=== PATIENT | female | born 1945 | race Caucasian/White ===

== ENCOUNTER → 2019-02-24 | Outpatient (CLI) | payer OTHER ==
[~2019-02-24] MED LIST: ACET500 PO; ALBU90OI6 INH; ALPR1 PO; AMIT25 PO; AMLO5 PO; ANTIDEPRESSANT; ASCO500 PO; ASPI81CH PO; ASPI81EC PO; Aspirin EC81 MG PO; BUDE6HFA INH; CALCAVITDA PO; CALCIT950 PO; CEPH500 PO; CODACE60 PO; CYCL10 PO; DOC250 PO; DOCU100 PO; FLAX PO; FLAXSEED1000 MG PO; Flagyl500 MG PO; GLIM2 PO; Glimepiride1 MG PO; HYDACE5 PO; HYDCHL12.5 PO; HYDCHL25 PO; HYDCHL50 PO; HYDR-86 PO; Hair, Skin & N1 EACH PO; IRON150C PO; Inderal40 MG PO; LEVFLO500 PO; LEVSOD100 PO; LEVSOD150 PO; LISI20 PO; LISI5 PO; METF500 PO; METO50 PO; MILK THISTLE; MULVITMIND PO; MUPI1NAS TOP; Milk Thistle175 M1 PO; Milk Thistle175 MG PO; NAPR500 PO; NITR.3SL SL; Nortriptyline H10 MG PO; PROP60 PO; Pepcid40 MG PO; Percocet 5-3251 EACH PO; Propranolol HCl80 MG PO; Pyridium100 MG PO; QUET25 PO; RXHYDACE PO; SIMV80 PO; Stool Softener100 MG PO; TRAZ100 PO; TRAZ50 PO; TRILIPIX; VITNEPH PO; VITORIN; Vitamin B Comple1 EA PO; ZESTRIL40 MG PO; Zofran Odt4 MG SL
== END | disposition home or self-care (01) ==
LOC: LAB SHORT 07:46 → PLD 07:46
DX: L57.0 Actinic keratosis (principal)
CPT/HCPCS: 88305

== ENCOUNTER 2019-03-26 06:06 | Day surgery (SDC) | payer OTHER ==
[~2019-03-26] VITALS: Ht 160 cm; Wt 75.0 kg
[~2019-03-26 06:06] MED LIST changes: +ALBU90OI INH; +AMLO10 PO; +Calcium 250+D1 EACH PO; +EPIPEN 2-P0.3 MG/0.3 IM; +EZET10 PO; +Flonase 0.05% N16 GM; +Imitrex100 MG PO; +LO-DOSE ASPIRIN81 MG PO; +LOSARTAN POTAS100 MG PO; +MULTI VITAMIN1 EACH PO; +TIROSINT150 MCG PO; +VITAMIN C500 M1 PO
--- NOTE | 2019-03-26 06:59 | NUR ---
03/26/19 0659 Lulu Art PT RESTING COMFORTABLY IN PREOP. CALL [facility] IN REACH.
--- NOTE | 2019-03-26 10:12 | NUR ---
03/26/19 1012 Chata Lowe REPORT TO [facility].DM
== END 2019-03-26 11:07 | disposition home or self-care (01) ==
LOC: ORSCSDS 06:06
PROVIDERS: Otolaryngology
PROC: 0GTK0ZZ Resection of Thyroid Gland, Open Approach (ICD-10-PCS; principal; 2019-03-26 07:30)
PROC: 0GBJ0ZZ Excision of Thyroid Gland Isthmus, Open Approach (ICD-10-PCS; principal; 2019-03-26 07:30)
DX: C73 Malignant neoplasm of thyroid gland (principal); D36.0 Benign neoplasm of lymph nodes; I10 Essential (primary) hypertension; E03.9 Hypothyroidism, unspecified; E11.9 Type 2 diabetes mellitus without complications; Z79.899 Other long term (current) drug therapy
CPT/HCPCS: 82947; 88305; 88307; J1100; J2250; J2270; J2405; J2704; J3010; J7120

== ENCOUNTER → 2019-04-29 | Outpatient (CLI) | payer OTHER ==
[2019-04-29 14:12] LABS: BASOPHILS ABSOLUTE AUTO 0.08 K/mm3 (0.00-0.23); BASOPHILS PERCENT AUTO 1 % (0-2); EOSINOPHILS ABSOLUTE AUTO 0.51 K/mm3 (0.00-0.68); EOSINOPHILS PERCENT AUTO 6 % (0-6); Hematocrit 41.5 % (33.0-51.0); Hemoglobin 13.9 g/dL (11.5-16.0); IMMATURE GRAN ABSOLUTE AUTO 0.05 K/mm3 (0.00-0.10); IMMATURE GRAN PERCENT AUTO 1 % (0-1); LYMPHOCYTES ABSOLUTE AUTO 2.12 K/mm3 (0.84-5.20); LYMPHOCYTES PERCENT AUTO 24 % (21-46); MONOCYTES ABSOLUTE AUTO 0.52 K/mm3 (0.16-1.47); MONOCYTES PERCENT AUTO 6 % (4-13); Mean Corpuscular HGB 29.5 pg (26.0-34.0); Mean Corpuscular HGB Conc 33.5 g/dL (31.5-36.5); Mean Corpuscular Volume 88 fL (80-100); Mean Platelet Volume 9.8 fL (9.1-12.4); NEUTROPHILS ABSOLUTE AUTO 5.52 K/mm3 (1.96-9.15); NEUTROPHILS PERCENT AUTO 63 % (41-73); Platelet Count 334 K/mm3 (150-400); RDW Coefficient Variation 13.5 % (11.7-14.2); RDW Standard Deviation 43.4 fL (35.1-46.3); Red Blood Cell Count 4.71 M/mm3 (3.80-5.20)
== END | disposition home or self-care (01) ==
LOC: LAB SHORT 14:06 → LAB EV 14:06
PROVIDERS: Physician Assistant
DX: E11.9 Type 2 diabetes mellitus without complications (principal)
CPT/HCPCS: 83036; 85025

== ENCOUNTER 2019-06-05 09:29 | Day surgery (SDC) | payer OTHER ==
[~2019-06-05] VITALS: Ht 152.4 cm; Wt 73.5 kg
--- NOTE | 2019-06-05 10:18 | NUR ---
06/05/[address] NOTIFIED PT'S LAST SIP OF WATER WAS AT 0930 THIS MORNING.
== END 2019-06-05 11:46 | disposition home or self-care (01) ==
LOC: ORSCSDS 09:29
PROVIDERS: Surgery
PROC: 0DBE8ZX Excision of Large Intestine, Via Natural or Artificial Opening Endoscopic, Diagnostic (ICD-10-PCS; principal; 2019-06-05 11:00)
DX: R19.7 Diarrhea, unspecified (principal); R10.84 Generalized abdominal pain; R93.5 Abnormal findings on diagnostic imaging of other abdominal regions, including retroperitoneum; Z87.891 Personal history of nicotine dependence; I10 Essential (primary) hypertension; E11.9 Type 2 diabetes mellitus without complications; Z79.899 Other long term (current) drug therapy
CPT/HCPCS: 82947; 88305; J2704; J7030; J7120

== ENCOUNTER 2019-10-16 08:47 | Day surgery (SDC) | payer OTHER ==
[~2019-10-16] VITALS: Ht 160 cm; Wt 78.4 kg
[2019-10-16] MEDS ORDERED: REPATHA SY140 MG/1 M (09:06)
--- NOTE | 2019-10-16 09:21 | NUR ---
10/16/19 0921 Lulu Art TIME OUT AND SITE CHECK DONE AT 0921
--- NOTE | 2019-10-16 10:29 | NUR ---
10/16/19 1029 Keyur Stringer 0.25 MG EPI ADDED TO 50 MLS NACL TO MAKE CONCENTRATION OF 1:200,000. 10 MLS INJECTED.
== END 2019-10-16 12:12 | disposition home or self-care (01) ==
LOC: ORSCSDS 08:47
PROVIDERS: Orthopaedic Surgery
PROC: 0LQ14ZZ Repair Right Shoulder Tendon, Percutaneous Endoscopic Approach (ICD-10-PCS; principal; 2019-10-16 10:00)
PROC: 0RNJ4ZZ Release Right Shoulder Joint, Percutaneous Endoscopic Approach (ICD-10-PCS; principal; 2019-10-16 10:00)
DX: M75.121 Complete rotator cuff tear or rupture of right shoulder, not specified as traumatic (principal); Z87.891 Personal history of nicotine dependence; I10 Essential (primary) hypertension; E11.9 Type 2 diabetes mellitus without complications; G47.33 Obstructive sleep apnea (adult) (pediatric); E07.9 Disorder of thyroid, unspecified; F41.8 Other specified anxiety disorders; Z79.84 Long term (current) use of oral hypoglycemic drugs; Z79.899 Other long term (current) drug therapy
CPT/HCPCS: 82947; C1713; J0171; J0690; J1100; J1885; J2001; J2250; J2370; J2405; J2704; J2795; J3010; J7120

== ENCOUNTER 2020-01-07 10:42 | Day surgery (SDC) | payer OTHER ==
[~2020-01-07] VITALS: Ht 160 cm; Wt 76.4 kg
[~2020-01-07 10:42] MED LIST changes: +ACYC400 PO; +Amaryl1 MG PO; +DICLOFENAC SOD100 G1; +FINA5 PO; +LEVO-T175 MCG PO; +REPATHA SY140 MG/1 M SC
--- NOTE | 2020-01-07 15:19 | NUR ---
01/07/20 1519 SEE ALVAREZ PATIENT UP IN CHAIR, STEADY GATE. TOLERATING PO INTAKE WELL, PO NORCO GIVEN PER MDA ORDER FOR SEVERE PAIN. VSS ON ROOM AIR. SON AT CHAIRSIDE.
== END 2020-01-07 15:44 | disposition home or self-care (01) ==
LOC: ORSCSDS 10:42
PROVIDERS: Otolaryngology
PROC: 0CUT0JZ Supplement Right Vocal Cord with Synthetic Substitute, Open Approach (ICD-10-PCS; principal; 2020-01-07 13:00)
DX: J38.3 Other diseases of vocal cords (principal); C73 Malignant neoplasm of thyroid gland; I10 Essential (primary) hypertension; E11.9 Type 2 diabetes mellitus without complications; Z79.84 Long term (current) use of oral hypoglycemic drugs; Z79.899 Other long term (current) drug therapy
CPT/HCPCS: 82947; A9270-GY; C1713; J1100; J2250; J2704; J3010; J7120

== ENCOUNTER → 2020-11-03 | Outpatient (CLI) | payer OTHER | LOC: LAB 18:02 → LAB SHORT 18:02 | DX: N39.0 Urinary tract infection, site not specified (principal) | CPT/HCPCS: 87077; 87086; 87186 ==

== ENCOUNTER 2021-05-25 14:50 | Inpatient (IN) | payer OTHER, MEDICARE ==
[~2021-05-25] VITALS: Ht 160 cm; Wt 72.6 kg
[2021-05-25 15:05] LABS: Calcium, Ionized (POC) 1.21 mmol/L (1.10-1.46); Chloride (POC) 110 mmol/L (98-108); Creatinine (POC) 1.5 mg/dL (0.6-1.0); Glucose (ISTAT POC) 144 mg/dL (70-99); Hemoglobin (POC) 12.9 g/dL (12.0-16.0); Potassium (POC) 4.8 mmol/L (3.5-5.5); Sodium (POC) 141 mmol/L (135-148); Total CO2 (POC) 17 mmol/L (21-32)
[2021-05-25 15:11] LABS: Hematocrit 37.8 % (33.0-51.0); Hemoglobin 12.6 g/dL (11.5-16.0); Mean Corpuscular HGB 30.4 pg (26.0-34.0); Mean Corpuscular HGB Conc 33.3 g/dL (31.5-36.5); Mean Corpuscular Volume 91 fL (80-100); Mean Platelet Volume 9.5 fL (9.1-12.4); Platelet Count 299 K/mm3 (150-400); RDW Coefficient Variation 13.2 % (11.7-14.2); RDW Standard Deviation 43.3 fL (35.1-46.3); Red Blood Cell Count 4.15 M/mm3 (3.80-5.20); White Blood Cell Count 12.54 K/mm3 (4.00-11.30)
[2021-05-25] MEDS ORDERED: SPIRONOLACTONE50 MG PO (15:15)
[2021-05-25] MEDS ORDERED: SYNTHROID137 MCG PO (15:16)
[2021-05-25] MEDS ORDERED: METO50ER PO (15:16)
[2021-05-25] MEDS ORDERED: LOSA50 PO (15:17)
[2021-05-25] MEDS ORDERED: REPATHA SU140 MG/1 M (15:17)
[2021-05-25] MEDS ORDERED: EZETIMIBE10 M6 PO (15:17)
[2021-05-25] MEDS ORDERED: NEURONTIN300 MG PO ×2 (15:18)
[2021-05-25] MEDS ORDERED: FINA5 PO (15:18)
[2021-05-25] MEDS ORDERED: Amaryl1 MG PO (15:19)
[2021-05-25] MEDS ORDERED: ACYCLOVIR400 MG PO (15:19)
[2021-05-25 15:27] LABS: International Normalized Ratio 0.97; Prothrombin Time Results 10.5 Sec (9.7-11.5)
[2021-05-25 15:37] LABS: Anion Gap 8 mmol/L (6-16); Blood Urea Nitrogen 32 mg/dL (8-24); Bun/Creatinine Ratio 24.6 (12.0-20.0); CHOL/HDL RATIO 2.3; CO2, Blood 22 mmol/L (21-32); CPK Creatine Kinase 272 U/L (26-193); Calcium, Blood 9.7 mg/dL (8.5-10.1); Chloride, Blood 110 mmol/L (98-108); Cholesterol 126 mg/dL (50-200); Glomerular Filtration Rate 40 (60-); Glucose, Blood 147 mg/dL (70-99); HDL Cholesterol 55 mg/dL (>39); LDL/HDL RATIO 0.5; Low Density Lipoprotein Chol 26 mg/dL (0-110); Magnesium, Blood 1.4 mg/dL (1.6-2.4); Potassium, Blood 4.8 mmol/L (3.5-5.5); Sodium, Blood 140 mmol/L (136-145); Triglycerides 227 mg/dL (30-160); Very Low Density Lipoprot Chol 45 mg/dL (6-32)
[2021-05-25 15:47] LABS: Creatine Kinase MB 19.1 ng/mL (0.0-3.6)
--- NOTE | 2021-05-25 17:30 | NUR ---
Patient arrived via gurney with TR band on right wrist and has 13cc in band. She is alet and oriented and is able to communicate her needs. She is on RA and sats >90%. Her TR band site C/D/I and no signs of bruising or hematoma. Received report from from staff. Family allowed shortly after. IV to LAC and is finishing bag from HC then 100 ml/hr.
[2021-05-25 18:15] LABS: BASOPHILS ABSOLUTE AUTO 0.04 K/mm3 (0.00-0.23); BASOPHILS PERCENT AUTO 0 % (0-2); EOSINOPHILS ABSOLUTE AUTO 0.23 K/mm3 (0.00-0.68); EOSINOPHILS PERCENT AUTO 2 % (0-6); Hematocrit 32.4 % (33.0-51.0); Hemoglobin 10.5 g/dL (11.5-16.0); IMMATURE GRAN ABSOLUTE AUTO 0.08 K/mm3 (0.00-0.10); IMMATURE GRAN PERCENT AUTO 1 % (0-1); LYMPHOCYTES ABSOLUTE AUTO 1.78 K/mm3 (0.84-5.20); LYMPHOCYTES PERCENT AUTO 15 % (21-46); MONOCYTES ABSOLUTE AUTO 0.65 K/mm3 (0.16-1.47); MONOCYTES PERCENT AUTO 5 % (4-13); Mean Corpuscular HGB 30.3 pg (26.0-34.0); Mean Corpuscular HGB Conc 32.4 g/dL (31.5-36.5); Mean Corpuscular Volume 94 fL (80-100); Mean Platelet Volume 9.6 fL (9.1-12.4); NEUTROPHILS ABSOLUTE AUTO 9.45 K/mm3 (1.96-9.15); NEUTROPHILS PERCENT AUTO 77 % (41-73); Platelet Count 230 K/mm3 (150-400); RDW Coefficient Variation 13.1 % (11.7-14.2); RDW Standard Deviation 44.6 fL (35.1-46.3); Red Blood Cell Count 3.46 M/mm3 (3.80-5.20); White Blood Cell Count 12.23 K/mm3 (4.00-11.30)
--- NOTE | 2021-05-25 19:03 | NUR ---
Dr Avelar by and spoke with family, EKG done. Cardiac diet started and she is tolerating well. Meds reveiwed and entered. Gave report to Gladys GORMAN
[2021-05-25 20:47] LABS: Bun/Creatinine Ratio 25.5 (12.0-20.0); Calcium, Blood 8.3 mg/dL (8.5-10.1); Creatinine, Blood 1.1 mg/dL (0.40-1.00)
--- NOTE | 2021-05-26 00:29 | NUR ---
PATIENT IS ALERT AND ORIENTED X4, COOPERATIVE WITH CARE. PATIENT STATED SHE WANTED HER CODE STATUS TO BE A DNR, CALLED DR. YAP AND CHANGED CODE STATUS TO DNR. PATIENT COMPLAINING OF 6/10 CHEST PAIN, FENTANYL GIVEN TWICE WITH NO TO LITTLE RELIEF, CALLED DR. YAP AND PT STARTED ON NITRO gtt, TROPONIN DRAWN WHICH IS TRENDING DOWN DR NOTIFIED. O2 SATS MAINTAINING >95% BUT PT COMPLAINS OF SOB, 2L VIA NC AND PT STATES SHE FEELS FINE NOW. PATIENT SBA TO BEDSIDE COMMODE. DR. YAP CALLED AND STARTED PT ON COLCHACINE, SEE EMAR. CALL LIGHT IN REACH.
--- NOTE | 2021-05-26 05:45 | NUR ---
SHIFT SUMMARY PATIENT REMAINS ALERT AND ORIENTED, COOPERATIVE WITH CARE. CHEST PAIN HAS NOW RESOLVED, PT ON NITRO gtt, SEE EMAR. PT ABLE TO SLEEP. TR BAND REMOVED @0245, TEGADERM IN PLACE, SCANT AMOUNT OF BLEEDING AND SMALL HEMATOMA UNCHANGED FROM BEGINNING OF SHIFT. EKG DONE AND IN CHART. PT REMAINS ON 2L VIA NC FOR COMFORT. CALL LIGHT IN REACH.
--- NOTE | 2021-05-26 09:19 | NUR ---
PT RESTING IN BED. DENIES CP, NV, AND SOB THIS AM. NITRO GTT HAS BEEN OFF AND NO COMPLAINTS. R RADIAL ACCESS SITE IS C/D/I AND STABLE WITH ARMBOARD IN PLACE. NO SIGN OF DISTRESS. ECHO BEING DONE NOW.
[2021-05-26 14:39] LABS: BASOPHILS ABSOLUTE AUTO 0.04 K/mm3 (0.00-0.23); BASOPHILS PERCENT AUTO 1 % (0-2); EOSINOPHILS ABSOLUTE AUTO 0.25 K/mm3 (0.00-0.68); EOSINOPHILS PERCENT AUTO 3 % (0-6); Hematocrit 33.5 % (33.0-51.0); Hemoglobin 11.1 g/dL (11.5-16.0); IMMATURE GRAN ABSOLUTE AUTO 0.04 K/mm3 (0.00-0.10); IMMATURE GRAN PERCENT AUTO 1 % (0-1); LYMPHOCYTES ABSOLUTE AUTO 1.45 K/mm3 (0.84-5.20); LYMPHOCYTES PERCENT AUTO 19 % (21-46); MONOCYTES PERCENT AUTO 8 % (4-13); Mean Corpuscular HGB Conc 33.1 g/dL (31.5-36.5); Mean Corpuscular Volume 91 fL (80-100); Mean Platelet Volume 9.6 fL (9.1-12.4); NEUTROPHILS ABSOLUTE AUTO 5.26 K/mm3 (1.96-9.15); NEUTROPHILS PERCENT AUTO 69 % (41-73); Platelet Count 246 K/mm3 (150-400); RDW Coefficient Variation 13.2 % (11.7-14.2); RDW Standard Deviation 43.3 fL (35.1-46.3); White Blood Cell Count 7.64 K/mm3 (4.00-11.30)
[2021-05-26 15:20] LABS: Anion Gap 5 mmol/L (6-16); Blood Urea Nitrogen 21 mg/dL (8-24); CO2, Blood 22 mmol/L (21-32); Calcium, Blood 9.3 mg/dL (8.5-10.1); Chloride, Blood 110 mmol/L (98-108); Creatinine, Blood 0.84 mg/dL (0.40-1.00); Glomerular Filtration Rate >60 (60-); Glucose, Blood 114 mg/dL (70-99); Potassium, Blood 4.7 mmol/L (3.5-5.5); Sodium, Blood 137 mmol/L (136-145)
--- NOTE | 2021-05-26 18:48 | NUR ---
SUMMARY PT RESTING IN BED. DENIES CP ALL DAY. HAS BEEN OFF NITRO SINCE 0820. OFF OXYGEN THIS AFTERNOON. R RADIAL SITE IS STABLE. PT HAS BEEN AMBULATING IN ROOM WITHOUT ISSUE. NO ACUTE CHANGES.
--- NOTE | 2021-05-26 21:05 | NUR ---
SHIFT ASSESSMENT ASSUMED CARE OF PT @ 1900, REPORT RECEIVED FROM VITA BLAIR. PT A&OX4. RADIAL ACCESS SITE WITH NO SIGNS OF BLEEDING. PT DENIES CP. SITTING UPRIGHT IN BED. NO COMPLAINTS AT THIS TIME. VSS. TRANSFERRING TO COMMODE WITH ONE PERSON ASSISTANCE.
--- NOTE | 2021-05-27 02:09 | NUR ---
UPDATE PT CONTINUES TO DENY CP. INTERMITTENTLY C/O SOB c O2 SATS @ 98-99% ON RA. PT ADMITS TO OCCASIONAL ANXIETY, PLACED ON 1LPM O2 VIA NC FOR ABOUT AN HOUR, SEEMED TO HELP PT RELAX. ALSO RECEIVED ORDERS FOR PRN ATIVAN, HAVE NOT NEEDED TO ADMINSTER YET. PT CURRENTLY RESTING WELL c O2 ON SB.
[2021-05-27 03:44] LABS: CHOL/HDL RATIO 2.5; Cholesterol 130 mg/dL (50-200); HDL Cholesterol 51 mg/dL (>39); LDL/HDL RATIO 0.8; Low Density Lipoprotein Chol 43 mg/dL (0-110); Triglycerides 181 mg/dL (30-160); Very Low Density Lipoprot Chol 36 mg/dL (6-32)
--- NOTE | 2021-05-27 06:03 | NUR ---
SHIFT SUMMARY PT REMAINS A&OX4. DENIED CP T/O THE NIGHT. ABLE TO SLEEP FOR MOST OF THE NIGHT. DID NOT REQUIRE ATIVAN. NO SIGNIFICANT CHANGES IN PT CONDITION.
--- NOTE | 2021-05-27 08:01 | NUR ---
pt up ad jennifer in room indep, gait is steady, denies dizziness, she reports she was sob durring the night, and was told its probably a new medication, breathing is fine now, but having some occational twinges in her left chest, v.s. stable, afebrile, states she slept like a rock last night, lungs are clear t/o, resp even and unlabored, no cough noted, hrr, monitor in place see strip, does have some st elevation that has been there, no edema noted, ppp+1, cap refill <3sec, vs stable, afebrile, iv sites are clear to r and l ac's, s.l, sites are clear and patent, btx4, abd flat soft nontender, voids without diff, skin is c/w/d, tr band site is clear with occlusive dressing in place, sravani peter, call light in reach.
--- NOTE | 2021-05-27 11:31 | NUR ---
Echocardiogram completed.
--- NOTE | 2021-05-27 14:29 | NUR ---
Notified Dr. Ramirez of results of trops that were ordered.
--- NOTE | 2021-05-27 17:53 | NUR ---
pt daughter was in to see pt, asking detailed questions, asked Dr. Willams to speak to her, she was able to speak to her on the phone and answered all her questions, pt has been up to the chair the second half of the day, and is up ad jennifer in the room, gait is steady, no further needs or complaints. call light in reach.
[2021-05-27 18:19] LABS: BASOPHILS ABSOLUTE AUTO 0.07 K/mm3 (0.00-0.23); BASOPHILS PERCENT AUTO 1 % (0-2); EOSINOPHILS ABSOLUTE AUTO 0.39 K/mm3 (0.00-0.68); EOSINOPHILS PERCENT AUTO 5 % (0-6); Hematocrit 39.2 % (33.0-51.0); Hemoglobin 12.8 g/dL (11.5-16.0); IMMATURE GRAN ABSOLUTE AUTO 0.05 K/mm3 (0.00-0.10); IMMATURE GRAN PERCENT AUTO 1 % (0-1); LYMPHOCYTES PERCENT AUTO 22 % (21-46); MONOCYTES ABSOLUTE AUTO 0.84 K/mm3 (0.16-1.47); MONOCYTES PERCENT AUTO 10 % (4-13); Mean Corpuscular HGB 30.2 pg (26.0-34.0); Mean Corpuscular HGB Conc 32.7 g/dL (31.5-36.5); Mean Corpuscular Volume 93 fL (80-100); Mean Platelet Volume 9.7 fL (9.1-12.4); NEUTROPHILS ABSOLUTE AUTO 4.97 K/mm3 (1.96-9.15); NEUTROPHILS PERCENT AUTO 61 % (41-73); Platelet Count 296 K/mm3 (150-400); RDW Coefficient Variation 13.3 % (11.7-14.2); RDW Standard Deviation 44.5 fL (35.1-46.3); Red Blood Cell Count 4.24 M/mm3 (3.80-5.20); White Blood Cell Count 8.12 K/mm3 (4.00-11.30)
[2021-05-27 19:01] LABS: Bun/Creatinine Ratio 30.6 (12.0-20.0); Calcium, Blood 9.4 mg/dL (8.5-10.1); Creatinine, Blood 0.92 mg/dL (0.40-1.00)
--- NOTE | 2021-05-27 21:55 | NUR ---
ASSUMED CARE OF PATIENT AT APPROXIMATELY 1900 FROM MONTSERRAT Nichole RN. PATIENT ALERT AND ORIENTED X4; FORGETFUL AT TIMES; INDEPENDENT IN ROOM OUT OF BED AND TO BATHROOM. PATIENT DENIES CP/PRESSURE, PAIN ELSEWHERE, NUMBNESS, TINGLING, DIZZINESS AND NAUSEA. PATIENT SR W/ ST ELEVATION SINCE ADMISSION TO ICU ON TELE. S/P ANGIO W/ TEGADERM TO RIGHT WRIST; SMALL BRUISE NOTED; NO BLEEDING OR HEMATOMA NOTED; OXYGEN SATURATION ABOVE 90% ON ROOM AIR; REPORTS LAST NIGHT SHE NEEDED SOME OXYGEN TO SLEEP DUE TO HER NEW MEDICATION. PIV X2 S/L. GAVE SUPPLIES AND PATIENT GAVE SELF A PARTIAL BEDBATH.
--- NOTE | 2021-05-28 06:09 | NUR ---
PATIENT SLEPT FOR ABOUT EIGHT HOURS LAST NIGHT. VSS. DENIED CP ALL SHIFT. NO ACUTE CHANGES TO REPORT.
[2021-05-28] MEDS ORDERED: SPIR25 PO (11:28)
[2021-05-28] MEDS ORDERED: Acetaminophen325 M1 PO (11:28)
[2021-05-28] MEDS ORDERED: ASPI81CH PO (11:29)
[2021-05-28] MEDS ORDERED: NITROGLYCERIN0.4 M1 SL (11:30)
[2021-05-28] MEDS ORDERED: COLCHICINE0.6 MG PO (11:30)
[2021-05-28] MEDS ORDERED: PRASUGREL HCL PO (11:31)
--- NOTE | 2021-05-28 13:05 | NUR ---
PT DISCHARGED TO HOME TODAY WITH DISCHARGED ORDERS, PT TO FF UP WITH DR DOVE IN A WEEK AND CARDIOLOGISTS INFORMATION PROVIDED FOR PT TO MAKE APPT SCHEDULED. PRESCRIPTION FAXED TO [facility], PT PROVIDED WITH DISCHARGED INSTRUCTIONS AND COUPON FOR NEW MEDICINE, PT INSTRUCTED TO TAKE 6 TABS IN AM THEN [address] LORENZO. NO OTHER ISSUES OR COMPLAINT REPORTED PRIOR TO DISCHARGE. DENIES CHEST PAIN. VERBALIZED UNDERSTANDING OF THE INSTRUCTION PROVIDED. DAUGHTER PROVIDED TRANSPORTATION.
== END 2021-05-28 13:08 | disposition home or self-care (01) | DRG 247 ==
LOC: ER 14:50 → ICUW 15:03 → ICUE 17:26
PROVIDERS: Emergency Medicine; Internal Medicine Cardiovascular Disease; ADMIT Internal Medicine Cardiovascular Disease
PROC: 027034Z Dilation of Coronary Artery, One Artery with Drug-eluting Intraluminal Device, Percutaneous Approach (ICD-10-PCS; principal; 2021-05-25)
PROC: 4A023N7 Measurement of Cardiac Sampling and Pressure, Left Heart, Percutaneous Approach (ICD-10-PCS; 2021-05-25)
PROC: B2111ZZ Fluoroscopy of Multiple Coronary Arteries using Low Osmolar Contrast (ICD-10-PCS; 2021-05-25)
DX: I21.09 ST elevation (STEMI) myocardial infarction involving other coronary artery of anterior wall (principal); I51.81 Takotsubo syndrome; I31.9 Disease of pericardium, unspecified; Z88.2 Allergy status to sulfonamides; I25.10 Atherosclerotic heart disease of native coronary artery without angina pectoris; I08.0 Rheumatic disorders of both mitral and aortic valves; E78.5 Hyperlipidemia, unspecified; E11.9 Type 2 diabetes mellitus without complications; I10 Essential (primary) hypertension; Z86.73 Personal history of transient ischemic attack (TIA), and cerebral infarction without residual deficits; Z88.8 Allergy status to other drugs, medicaments and biological substances; Z79.899 Other long term (current) drug therapy; Z90.710 Acquired absence of both cervix and uterus; Z98.890 Other specified postprocedural states
CPT/HCPCS: 36415; 71045; 76937; 80047; 80048; 80061; 82550; 82553; 82947; 83735; 83880; 84484; 85014; 85025; 85027; 85347; 85610; 85730; 86850; 86900; 86901; 92978; 93005; 93010; 93306; 93308; 93321; 93458; 93571; 99152; 99153; 99285-25; A9270; C1725; C1753; C1769; C1874; C1887; C1894; C9606; J0461; J1644; J2250; J2370; J3010; J7030; J7050; Q9967

== ENCOUNTER 2021-09-11 17:24 | Emergency (ER) | payer OTHER ==
[~2021-09-11] VITALS: Ht 160 cm; Wt 72.6 kg
[~2021-09-11 17:24] MED LIST changes: +ACYCLOVIR400 MG PO; +Acetaminophen325 M1 PO; +COLCHICINE0.6 MG PO; +EZETIMIBE10 M6 PO; +LOSA50 PO; +METO50ER PO; +NEURONTIN300 MG PO; +NITROGLYCERIN0.4 M1 SL; +PRASUGREL HCL PO; +REPATHA SU140 MG/1 M; +SPIR25 PO; +SPIRONOLACTONE50 MG PO; +SYNTHROID137 MCG PO
== END 2021-09-11 19:42 | disposition home or self-care (01) ==
LOC: ER 17:24
DX: S60.212A Contusion of left wrist, initial encounter (principal); I10 Essential (primary) hypertension; E11.9 Type 2 diabetes mellitus without complications; E78.5 Hyperlipidemia, unspecified; Z88.2 Allergy status to sulfonamides; Z88.8 Allergy status to other drugs, medicaments and biological substances; Z91.048 Other nonmedicinal substance allergy status; Z79.899 Other long term (current) drug therapy; Z79.84 Long term (current) use of oral hypoglycemic drugs; X58.XXXA Exposure to other specified factors, initial encounter
CPT/HCPCS: 73100; 99283-25

== ENCOUNTER → 2022-01-24 | Outpatient (CLI) | payer OTHER | LOC: LAB SHORT 16:12 → LAB 16:12 | DX: N39.0 Urinary tract infection, site not specified (principal) | CPT/HCPCS: 87077; 87086; 87186 ==

== ENCOUNTER 2022-02-20 18:14 | Emergency (ER) | payer OTHER ==
[~2022-02-20] VITALS: Ht 177.8 cm; Wt 77.1 kg
[2022-02-20 18:37] LABS: BASOPHILS ABSOLUTE AUTO 0.03 K/mm3 (0.00-0.23); BASOPHILS PERCENT AUTO 1 % (0-2); EOSINOPHILS ABSOLUTE AUTO 0.36 K/mm3 (0.00-0.68); EOSINOPHILS PERCENT AUTO 6 % (0-6); Hematocrit 37.7 % (33.0-51.0); Hemoglobin 12.6 g/dL (11.5-16.0); IMMATURE GRAN ABSOLUTE AUTO 0.02 K/mm3 (0.00-0.10); IMMATURE GRAN PERCENT AUTO 0 % (0-1); LYMPHOCYTES ABSOLUTE AUTO 1.75 K/mm3 (0.84-5.20); LYMPHOCYTES PERCENT AUTO 28 % (21-46); MONOCYTES ABSOLUTE AUTO 0.44 K/mm3 (0.16-1.47); MONOCYTES PERCENT AUTO 7 % (4-13); Mean Corpuscular HGB 30.7 pg (26.0-34.0); Mean Corpuscular HGB Conc 33.4 g/dL (31.5-36.5); Mean Corpuscular Volume 92 fL (80-100); Mean Platelet Volume 9.6 fL (9.1-12.4); NEUTROPHILS ABSOLUTE AUTO 3.72 K/mm3 (1.96-9.15); NEUTROPHILS PERCENT AUTO 59 % (41-73); Platelet Count 236 K/mm3 (150-400); RDW Coefficient Variation 13.4 % (11.7-14.2); RDW Standard Deviation 45.3 fL (35.1-46.3); White Blood Cell Count 6.32 K/mm3 (4.00-11.30)
[2022-02-20 18:46] LABS: Source, Urine Fem Cath
[2022-02-20 18:50] LABS: Appearance, Urine Hazy (Clear); Bilirubin, Urine Neg (Neg); Blood, Urine Neg (Neg); Color, Urine Yellow (P-Yellow); Glucose Qualitative, Urine Neg (Neg); Ketones, Urine Neg (Neg); Leukocyte Esterase, Urine 2+ (Neg); Nitrite, Urine Neg (Neg); Protein, Urine 2+ (Neg); Specific Gravity, Urine 1.025 (1.003-1.022); Urobilinogen, Urine NORM (Normal)
[2022-02-20 18:55] LABS: Albumin, Blood 3.7 g/dL (3.4-5.0); Albumin/Globulin Ratio 1.1 (0.8-1.8); Bilirubin, Total 0.2 mg/dL (0.1-1.0); Bun/Creatinine Ratio 24.7 (12.0-20.0); Calcium, Blood 8.6 mg/dL (8.5-10.1); Creatinine, Blood 0.93 mg/dL (0.40-1.00); Globulin, Blood 3.5 g/dL (2.2-4.0); Potassium, Blood 4.1 mmol/L (3.5-5.5); Total Protein, Blood 7.2 g/dL (6.4-8.2)
[2022-02-20 19:14] LABS: Bacteria Many /hpf; Red Blood Cells, Urine Rare /hpf (0-2); Squamous Epithelial Cells Few /hpf (Few); White Blood Cells, Urine 25-50 /hpf (0-5)
[2022-02-20] MEDS ORDERED: CEPH500 PO (19:59)
== END 2022-02-20 20:07 | disposition home or self-care (01) ==
LOC: ER 18:14
PROVIDERS: Physician Assistant
DX: N39.0 Urinary tract infection, site not specified (principal); I10 Essential (primary) hypertension; E11.9 Type 2 diabetes mellitus without complications; Z79.84 Long term (current) use of oral hypoglycemic drugs; Z88.2 Allergy status to sulfonamides; Z88.8 Allergy status to other drugs, medicaments and biological substances; Z91.018 Allergy to other foods; Z87.891 Personal history of nicotine dependence
CPT/HCPCS: 36415; 80053; 81001; 83690; 85025; J0696

== ENCOUNTER → 2022-03-21 | Outpatient (CLI) | payer OTHER ==
[2022-03-23 21:02] LABS: Campylobacter Sp Not Detected (NOT DETECT); Enteroaggregative E. coli-EAEC Not Detected (NOT DETECT); Enteropathogenic E. coli-EPEC Not Detected (NOT DETECT); Enterotoxigenic E. coli-ETEC Not Detected (NOT DETECT); Plesiomonas Shigelloides Not Detected (NOT DETECT); Salmonella Sp Not Detected (NOT DETECT); Shiga Toxin-prod E. coli-STEC Not Detected (NOT DETECT); Vibrio Cholerae Not Detected (NOT DETECT); Vibrio Sp Not Detected (NOT DETECT); Yersinia Enterocolitica Not Detected (NOT DETECT)
[2022-03-23 21:03] LABS: Adenovirus F 40/41 Not Detected (NOT DETECT); Astrovirus Not Detected (NOT DETECT); Cryptosporidium Not Detected (NOT DETECT); Cyclospora Cayetanensis Not Detected (NOT DETECT); E. Coli O157 Not Detected (NOT DETECT); Entamoeba Histolytica Not Detected (NOT DETECT); Giardia Lamblia Not Detected (NOT DETECT); Norovirus GI/GII Not Detected (NOT DETECT); Rotavirus A Not Detected (NOT DETECT); Sapovirus Not Detected (NOT DETECT); Shigella/Enteroin E. coli-EIEC Not Detected (NOT DETECT)
== END | disposition home or self-care (01) ==
LOC: LAB SHORT 16:06
PROVIDERS: Physician Assistant Medical
DX: R19.7 Diarrhea, unspecified (principal)
CPT/HCPCS: 87507

== ENCOUNTER 2022-06-12 06:41 | Day surgery (SDC) | payer OTHER ==
[~2022-06-12] VITALS: Ht 160 cm; Wt 73.6 kg
[2022-06-12] MEDS ORDERED: DRIZALMA SPRINK20 MG (07:02)
[2022-06-12] MEDS ORDERED: EZET10 (07:03)
--- NOTE | 2022-06-12 07:39 | NUR ---
06/12/22 0739 Nazanin Villalba THREE ATTEMPTS AT IV. FIRST ATTEMPT AT IV BY MA IN RIGHT HAND MISSED. SECOND ATTEMPT AT IV BY MA IN RIGHT FOREARM INFILTRATED. THIRD ATTEMPT AT IV BY RN IN LEFT HAND SUCCESSFUL.
--- NOTE | 2022-06-12 09:52 | NUR ---
06/12/22 0952 Sangeeta Boone RN ENCOURAGED PT TO TAKE HER BLOOD PRESSURE MEDICATIONS PRESCRIBED. SHE STATED "I AM SUPPOSED TO TAKE MY BP MEDICINE TWICE A DAY BUT USUALLY ONLY TAKE IT AT NIGHT." RN ENCOURAGED PT TO MONITOR BP AT HOME AND TAKE MEDICATIONS PRESCRIBED.
== END 2022-06-12 09:45 | disposition home or self-care (01) ==
LOC: ORSCSDS 06:41
PROVIDERS: Student in an Organized Health Care Education/Training Program
PROC: 0DBK8ZX Excision of Ascending Colon, Via Natural or Artificial Opening Endoscopic, Diagnostic (ICD-10-PCS; principal; 2022-06-12 08:00)
PROC: 0DBE8ZX Excision of Large Intestine, Via Natural or Artificial Opening Endoscopic, Diagnostic (ICD-10-PCS; principal; 2022-06-12 08:00)
PROC: 0DBL8ZX Excision of Transverse Colon, Via Natural or Artificial Opening Endoscopic, Diagnostic (ICD-10-PCS; principal; 2022-06-12 08:00)
DX: R19.7 Diarrhea, unspecified (principal); K62.5 Hemorrhage of anus and rectum; D12.2 Benign neoplasm of ascending colon; D12.3 Benign neoplasm of transverse colon; D50.9 Iron deficiency anemia, unspecified; Z86.010 Personal history of colon polyps; K29.70 Gastritis, unspecified, without bleeding; B96.81 Helicobacter pylori [H. pylori] as the cause of diseases classified elsewhere; E11.9 Type 2 diabetes mellitus without complications; I10 Essential (primary) hypertension; E03.9 Hypothyroidism, unspecified; E78.5 Hyperlipidemia, unspecified; I25.2 Old myocardial infarction; I25.10 Atherosclerotic heart disease of native coronary artery without angina pectoris; Z85.850 Personal history of malignant neoplasm of thyroid; Z85.72 Personal history of non-Hodgkin lymphomas; Z87.891 Personal history of nicotine dependence; Z79.899 Other long term (current) drug therapy; Z79.82 Long term (current) use of aspirin; Z79.84 Long term (current) use of oral hypoglycemic drugs
CPT/HCPCS: 82947; 88305; 88313; 88342; J2704; J7120

== ENCOUNTER → 2022-06-22 | Outpatient (CLI) | payer OTHER ==
[~2022-06-22] MED LIST changes: +DRIZALMA SPRINK20 MG; +EZET10
== END | disposition home or self-care (01) ==
LOC: LAB 13:30 → LAB SHORT 13:30
DX: M54.50 Low back pain, unspecified (principal); N39.0 Urinary tract infection, site not specified
CPT/HCPCS: 87086

== ENCOUNTER 2022-11-26 17:04 | Inpatient (IN) | payer OTHER ==
[~2022-11-26] VITALS: Ht 160 cm; Wt 72.6 kg
[2022-11-26 18:03] LABS: BASOPHILS ABSOLUTE AUTO 0.06 K/mm3 (0.00-0.23); BASOPHILS PERCENT AUTO 1 % (0-2); EOSINOPHILS ABSOLUTE AUTO 0.34 K/mm3 (0.00-0.68); EOSINOPHILS PERCENT AUTO 4 % (0-6); Hematocrit 40.5 % (33.0-51.0); Hemoglobin 13.3 g/dL (11.5-16.0); IMMATURE GRAN ABSOLUTE AUTO 0.04 K/mm3 (0.00-0.10); IMMATURE GRAN PERCENT AUTO 0 % (0-1); LYMPHOCYTES ABSOLUTE AUTO 1.85 K/mm3 (0.84-5.20); LYMPHOCYTES PERCENT AUTO 20 % (21-46); MONOCYTES ABSOLUTE AUTO 0.67 K/mm3 (0.16-1.47); MONOCYTES PERCENT AUTO 7 % (4-13); Mean Corpuscular HGB 30.5 pg (26.0-34.0); Mean Corpuscular HGB Conc 32.8 g/dL (31.5-36.5); Mean Corpuscular Volume 93 fL (80-100); Mean Platelet Volume 9.5 fL (9.1-12.4); NEUTROPHILS ABSOLUTE AUTO 6.18 K/mm3 (1.96-9.15); NEUTROPHILS PERCENT AUTO 68 % (41-73); Platelet Count 264 K/mm3 (150-400); RDW Standard Deviation 44.1 fL (35.1-46.3); Red Blood Cell Count 4.36 M/mm3 (3.80-5.20); White Blood Cell Count 9.14 K/mm3 (4.00-11.30)
[2022-11-26 18:24] LABS: Albumin, Blood 4.3 g/dL (3.4-5.0); Albumin/Globulin Ratio 1.2 (0.8-1.8); Bilirubin, Total 0.3 mg/dL (0.1-1.0); Bun/Creatinine Ratio 15.7 (12.0-20.0); Calcium, Blood 9.1 mg/dL (8.5-10.1); Creatinine, Blood 3.19 mg/dL (0.40-1.00); Globulin, Blood 3.7 g/dL (2.2-4.0); Potassium, Blood 5.2 mmol/L (3.5-5.5)
[2022-11-26] MEDS ORDERED: MINO2.5 PO (20:54)
[2022-11-26] MEDS ORDERED: REPATHA SU140 MG/1 M SC (20:58)
[2022-11-26] MEDS ORDERED: SUMA25 PO (21:00)
[2022-11-26] MEDS ORDERED: FINA5 PO (21:03)
[2022-11-26] MEDS ORDERED: DULO60 PO (21:08)
[2022-11-26 21:14] LABS: Influenza A, PCR NEGATIVE (NEGATIVE); Influenza B, PCR NEGATIVE (NEGATIVE); Resp Syncytial Virus, PCR NEGATIVE (NEGATIVE); SARS-Cov-2 (COVID-19) PCR, MMC NEGATIVE (NEGATIVE)
--- NOTE | 2022-11-26 22:10 | NUR ---
ORTHOS COMPLETED LYING BP 132/67 HR 113. SITTING BP 105/70 HR 117. STANDING BP 119/95 HR 122
--- NOTE | 2022-11-27 04:30 | NUR ---
SHIFT SUMMARY PT ARRIVED TO FLOOR. ADMISSION AND ASSESSMENT COMPLETE. SKIN ASSESSMENT DONE, SKIN INTACT. PT REPORTS MILD DIZZINESS WITH POSITION CHANGES. DIZZINESS RESOLVES AFTER A FEW SECONDS. DENIES ANY SOB/CP. CONTINUES IV FLUIDS. PT USED BSC WITH X1 ASSIST FOR SAFETY. REPORTS GENERAL PAIN FROM RECENT FALLS, ADMINISTERED TYLENOL. PT ORIENTED X4, SLIGHTLY FORGETFUL, BED ALARM ON. FREQUENT ROUNDING TO ASSIST IN NEEDS.
[2022-11-27 04:40] LABS: Bun/Creatinine Ratio 22.6 (12.0-20.0); Calcium, Blood 7.9 mg/dL (8.5-10.1); Creatinine, Blood 1.9 mg/dL (0.40-1.00); Potassium, Blood 4.7 mmol/L (3.5-5.5)
--- NOTE | 2022-11-27 17:20 | NUR ---
SHIFT SUMMARY NO ACUTE CHANGES DURING SHIFT. PT ALERT AND ORIENTED, CALLS APPROPRIATELY. INDWELLING SOLIS CATHETER PLACED D/T RETENTION. SOLIS DRAINING TO GRAVITY. PT REMAINS ON RA. PT SBA TO BATHROOM. NS @ 150 ML/HR. PT C/O WILDER NOT RELEAVED BY TYLENOL, PT STARTED ON HOME MEDICATION, WILL MONITOR FOR EFFECTIVENESS. CALL LIGHT WITHIN REACH.
--- NOTE | 2022-11-28 03:50 | NUR ---
SHIFT SUMMARY NOC PT A/O X4. PT HAD ELEVATED SYSTOLIC BP > 170 MULTIPLE TIMES AND HOSPITALIST NOTIFIED AND ORDER FOR IV HYDRALZINE 10MG Q6H PRN OBTAINED AND ADMINISTERED AND PT BP WAS LOWERED TO WNL. PT NS @ 150 MLS/HR WAS DC. PT ON TELE RUNNNING SINUTS TACHYCARDIA @ 106 BPM[address] PT [address] IN [address] PATENT AND DRAINING YELLOW URINE TO GRAVITY. PT DID NOT HAVE C/O OF WILDER DURING SHIFT. PT IS CURRENTLY RESTING WITH BED IN LOWEST POSITION, AND CALL LIGHT WITHIN REACH. WCTM.
[2022-11-28 07:35] LABS: BASOPHILS ABSOLUTE AUTO 0.04 K/mm3 (0.00-0.23); BASOPHILS PERCENT AUTO 1 % (0-2); EOSINOPHILS ABSOLUTE AUTO 0.23 K/mm3 (0.00-0.68); EOSINOPHILS PERCENT AUTO 4 % (0-6); Hematocrit 35.8 % (33.0-51.0); Hemoglobin 11.8 g/dL (11.5-16.0); IMMATURE GRAN ABSOLUTE AUTO 0.01 K/mm3 (0.00-0.10); IMMATURE GRAN PERCENT AUTO 0 % (0-1); LYMPHOCYTES ABSOLUTE AUTO 1.21 K/mm3 (0.84-5.20); LYMPHOCYTES PERCENT AUTO 23 % (21-46); MONOCYTES PERCENT AUTO 10 % (4-13); Mean Corpuscular Volume 91 fL (80-100); Mean Platelet Volume 9.6 fL (9.1-12.4); NEUTROPHILS ABSOLUTE AUTO 3.22 K/mm3 (1.96-9.15); NEUTROPHILS PERCENT AUTO 62 % (41-73); Platelet Count 211 K/mm3 (150-400); RDW Coefficient Variation 12.7 % (11.7-14.2); RDW Standard Deviation 41.9 fL (35.1-46.3); Red Blood Cell Count 3.93 M/mm3 (3.80-5.20); White Blood Cell Count 5.21 K/mm3 (4.00-11.30)
[2022-11-28 07:57] LABS: Bun/Creatinine Ratio 19.2 (12.0-20.0); Calcium, Blood 9.1 mg/dL (8.5-10.1); Creatinine, Blood 1.04 mg/dL (0.40-1.00); Potassium, Blood 4.8 mmol/L (3.5-5.5)
[2022-11-28 08:30] LABS: Source, Urine Foley catheter
[2022-11-28 08:34] LABS: Bilirubin, Urine Neg (Neg); Blood, Urine 4+ (Neg); Glucose Qualitative, Urine Neg (Neg); Ketones, Urine Neg (Neg); Leukocyte Esterase, Urine 3+ (Neg); Nitrite, Urine Pos (Neg); Protein, Urine 2+ (Neg); Urobilinogen, Urine NORM (Normal)
[2022-11-28 09:19] LABS: Appearance, Urine Hazy (Clear); Color, Urine Yellow (P-Yellow); Squamous Epithelial Cells Not Seen /hpf (Few); White Blood Cells, Urine 50-100 /hpf (0-5)
[2022-11-28 09:20] LABS: Bacteria Few /hpf
--- NOTE | 2022-11-28 10:16 | NUR ---
SOLIS CATHETER REMOVED PER MD ORDER. PT INFORMED OF NEED TO NOTIFY STAFF FOLLOWING VOID. WILL REPEAT BLADDER SCAN POST VOID AND CHECK RESIDUALS.
--- NOTE | 2022-11-28 13:26 | NUR ---
DISCHARGE NOTE DISCHARGE, FOLLOWUP AND MEDICATION INSTRUCTIONS GIVEN TO PT. PT VOICED COMPLETE UNDERSTANDING AND HAS NO QUESTIONS AT THIS TIME. IV REMOVED WITH CATHETER TIP INTACT. TELE DISCONTINUED AND REMOVED. WILL CONTINUE TO MONITOR UNTIL PT LEAVES.
== END 2022-11-28 13:43 | disposition home or self-care (01) | DRG 683 ==
LOC: ER 17:04 → MEDS 17:05
PROVIDERS: Emergency Medicine; Internal Medicine; Physician Assistant; ADMIT Internal Medicine
DX: N17.9 Acute kidney failure, unspecified (principal); E87.1 Hypo-osmolality and hyponatremia; E11.9 Type 2 diabetes mellitus without complications; E78.5 Hyperlipidemia, unspecified; I10 Essential (primary) hypertension; E86.1 Hypovolemia; I25.10 Atherosclerotic heart disease of native coronary artery without angina pectoris; I51.7 Cardiomegaly; I34.0 Nonrheumatic mitral (valve) insufficiency; R29.6 Repeated falls; R42 Dizziness and giddiness; I35.0 Nonrheumatic aortic (valve) stenosis; I95.9 Hypotension, unspecified; W19.XXXA Unspecified fall, initial encounter; Z20.822 Contact with and (suspected) exposure to COVID-19; I25.2 Old myocardial infarction; Z88.2 Allergy status to sulfonamides; Z91.018 Allergy to other foods; Z79.84 Long term (current) use of oral hypoglycemic drugs; Z79.52 Long term (current) use of systemic steroids; Z88.8 Allergy status to other drugs, medicaments and biological substances; Z79.899 Other long term (current) drug therapy; Z79.51 Long term (current) use of inhaled steroids; Z79.2 Long term (current) use of antibiotics; Z87.891 Personal history of nicotine dependence; Z95.5 Presence of coronary angioplasty implant and graft; Z90.49 Acquired absence of other specified parts of digestive tract; Z90.710 Acquired absence of both cervix and uterus; Z87.820 Personal history of traumatic brain injury; Z98.890 Other specified postprocedural states
CPT/HCPCS: 0241U; 36415; 51798; 70450; 76770; 80048; 80053; 81001; 82570; 82947; 84300; 85025; 87077; 87086; 87186; 93005; 93010; 96361; 96372; 97116; 97162; 99285-25; A9270; G0378; J0360; J1644; J7030

== ENCOUNTER 2024-06-16 10:16 | Observation (INO) | payer OTHER ==
[~2024-06-16] VITALS: Ht 160 cm; Wt 77.7 kg
[~2024-06-16 10:16] MED LIST changes: +B COMPLEX-VITA1 EACH PO; +CALCIUM 250-VI1 EAC1 PO; -Calcium 250+D1 EACH PO; +DICLOFENAC SOD100 GM TOP; +DULO60 PO; +EPIPEN0.3 MG/0.3 SC; +EZETIMIBE10 M1 PO; +FARXIGA5 MG PO; +FLAXSEED OIL1000 M1 PO; +GABA600; +MINO2.5 PO; +PANT40 PO; +PLAVIX75 MG PO; +REPATHA SU140 MG/1 M SC; +SPIR50 PO; +VITAMIN B-122000 MC1 PO; -VITAMIN C500 M1 PO; +ZANAFLEX413 PO
[2024-06-16 10:42] LABS: BASOPHILS ABSOLUTE AUTO 0.02 K/mm3 (0.00-0.23); BASOPHILS PERCENT AUTO 0 % (0-2); EOSINOPHILS ABSOLUTE AUTO 0.15 K/mm3 (0.00-0.68); EOSINOPHILS PERCENT AUTO 2 % (0-6); Hematocrit 32.8 % (33.0-51.0); Hemoglobin 10.6 g/dL (11.5-16.0); IMMATURE GRAN ABSOLUTE AUTO 0.03 K/mm3 (0.00-0.10); IMMATURE GRAN PERCENT AUTO 0 % (0-1); LYMPHOCYTES ABSOLUTE AUTO 0.66 K/mm3 (0.84-5.20); LYMPHOCYTES PERCENT AUTO 10 % (21-46); MONOCYTES ABSOLUTE AUTO 0.43 K/mm3 (0.16-1.47); MONOCYTES PERCENT AUTO 6 % (4-13); Mean Corpuscular HGB 29.6 pg (26.0-34.0); Mean Corpuscular HGB Conc 32.3 g/dL (31.5-36.5); Mean Corpuscular Volume 92 fL (80-100); Mean Platelet Volume 10.6 fL (9.1-12.4); NEUTROPHILS ABSOLUTE AUTO 5.38 K/mm3 (1.96-9.15); NEUTROPHILS PERCENT AUTO 81 % (41-73); Platelet Count 308 K/mm3 (150-400); RDW Coefficient Variation 14.1 % (11.7-14.2); RDW Standard Deviation 47.3 fL (35.1-46.3); Red Blood Cell Count 3.58 M/mm3 (3.80-5.20); White Blood Cell Count 6.67 K/mm3 (4.00-11.30)
[2024-06-16 11:04] LABS: Albumin, Blood 3.2 g/dL (3.4-5.0); Albumin/Globulin Ratio 0.7 (0.8-1.8); Bilirubin, Total 0.3 mg/dL (0.1-1.0); Calcium, Blood 8.8 mg/dL (8.5-10.1); Creatinine, Blood 2.36 mg/dL (0.40-1.00); Globulin, Blood 4.7 g/dL (2.2-4.0); Potassium, Blood 5.4 mmol/L (3.5-5.5); Total Protein, Blood 7.9 g/dL (6.4-8.2)
[2024-06-16] MEDS ORDERED: NS 1,000 ML IV SCH ×2 (11:15→17:20)
[2024-06-16] MEDS ORDERED: Ondansetron HCl 2 MG / ML 2ML Vial IV ONE (11:15)
[2024-06-16 12:41] LABS: Influenza A, PCR NEGATIVE (NEGATIVE); Influenza B, PCR NEGATIVE (NEGATIVE); Resp Syncytial Virus, PCR NEGATIVE (NEGATIVE)
[2024-06-16 12:42] LABS: SARS-Cov-2 (COVID-19) PCR, MMC POSITIVE (NEGATIVE)
[2024-06-16] MEDS ORDERED: OxyCODONE HCL 5 MG TAB PO PRN (13:50)
[2024-06-16] MEDS ORDERED: Zolpidem Tartrate 5 MG Tab PO PRN (13:50)
[2024-06-16] MEDS ORDERED: Ondansetron HCl 2 MG / ML 2ML Vial IV PRN (13:50)
[2024-06-16] MEDS ORDERED: Acetaminophen 325 MG TABLET PO PRN (13:55)
[2024-06-16] MEDS ORDERED: Ondansetron 4 MG TAB PO PRN (13:55)
[2024-06-16 15:29] VITALS: BP 110/48
[2024-06-16] MEDS ORDERED: Insulin Human Lispro 100 Units/ML 3ML Syringe SC SCH ×2 (16:30→21:00)
[2024-06-16 17:35] LABS: Source, Urine Clean Catch
[2024-06-16 17:41] LABS: Appearance, Urine Hazy (Clear); Bilirubin, Urine Neg (Neg); Blood, Urine 4+ (Neg); Color, Urine Yellow (P-Yellow); Glucose Qualitative, Urine 4+ (Neg); Ketones, Urine Neg (Neg); Leukocyte Esterase, Urine 1+ (Neg); Nitrite, Urine Neg (Neg); Protein, Urine 2+ (Neg); Specific Gravity, Urine 1.015 (1.003-1.022); Urobilinogen, Urine NORM (Normal)
[2024-06-16 17:52] LABS: Bacteria Many /hpf; Hyaline Casts 0-2 /lpf (0-2); Renal Epithelial Rare /hpf (0-Rare); Squamous Epithelial Cells Few /hpf (Few); Transitional Epithelial Cells Rare /hpf (0-Rare); Yeast/Fungi Urine Few /hpf
[2024-06-16] MEDS ORDERED: PSYSENPA PO (17:55)
[2024-06-16] MEDS ORDERED: MIRALAX17 GM PO (18:00)
--- NOTE | 2024-06-16 18:12 | NUR ---
SHIFT SUMMARY PT A&OX4, VSS, AMB W/ SBA, TOLERATING PO, VOIDING, AND DENIED PAIN. PT HAD POST VOID BLADDER SCAN OF 155 MLS AND UA SENT TO LAB. SAMIRA FAXED PT'S MED LIST TO THIS NURSE AND MED REC COMPLETED. NS INFUSING AT 100 MLS/HR PER ORDER. CALL LIGHT WITHIN REACH AND PT ABLE TO MAKE NEEDS KNOWN. BED ALARM ON.
[2024-06-16 19:47] VITALS: BP 138/64
[2024-06-16] MEDS ORDERED: Famotidine 20 MG Tab PO SCH (21:00)
[2024-06-17 03:00] VITALS: BP 115/73
[2024-06-17 04:57] LABS: BASOPHILS ABSOLUTE AUTO 0.02 K/mm3 (0.00-0.23); BASOPHILS PERCENT AUTO 0 % (0-2); EOSINOPHILS ABSOLUTE AUTO 0.19 K/mm3 (0.00-0.68); EOSINOPHILS PERCENT AUTO 4 % (0-6); Hematocrit 30.6 % (33.0-51.0); Hemoglobin 9.7 g/dL (11.5-16.0); IMMATURE GRAN ABSOLUTE AUTO 0.04 K/mm3 (0.00-0.10); IMMATURE GRAN PERCENT AUTO 1 % (0-1); LYMPHOCYTES ABSOLUTE AUTO 1.12 K/mm3 (0.84-5.20); LYMPHOCYTES PERCENT AUTO 22 % (21-46); MONOCYTES ABSOLUTE AUTO 0.55 K/mm3 (0.16-1.47); MONOCYTES PERCENT AUTO 11 % (4-13); Mean Corpuscular HGB 29.6 pg (26.0-34.0); Mean Corpuscular HGB Conc 31.7 g/dL (31.5-36.5); Mean Corpuscular Volume 93 fL (80-100); Mean Platelet Volume 9.9 fL (9.1-12.4); NEUTROPHILS ABSOLUTE AUTO 3.21 K/mm3 (1.96-9.15); NEUTROPHILS PERCENT AUTO 63 % (41-73); Platelet Count 254 K/mm3 (150-400); RDW Coefficient Variation 14.3 % (11.7-14.2); RDW Standard Deviation 48.9 fL (35.1-46.3); Red Blood Cell Count 3.28 M/mm3 (3.80-5.20); White Blood Cell Count 5.13 K/mm3 (4.00-11.30)
[2024-06-17 05:34] LABS: Albumin, Blood 3.1 g/dL (3.4-5.0); Albumin/Globulin Ratio 0.8 (0.8-1.8); Bilirubin, Total 0.3 mg/dL (0.1-1.0); Bun/Creatinine Ratio 20.6 (12.0-20.0); Calcium, Blood 8.3 mg/dL (8.5-10.1); Creatinine, Blood 2.04 mg/dL (0.40-1.00); Globulin, Blood 4.1 g/dL (2.2-4.0); Potassium, Blood 5.3 mmol/L (3.5-5.5); Total Protein, Blood 7.2 g/dL (6.4-8.2)
--- NOTE | 2024-06-17 06:31 | NUR ---
Shift Summary Pt whas somewhat confused and forgetful t/o the night. She would not call when getting up and we relied on the bed alarm to let us know she was going to use the bathroom. At one point she had taken off her gown and pulled her IV out doing so. She was unsure of where she was and the date. She was pleasant and cooperative with care. Lungs were clear, no s/s of covid. She is fairly unstead on her walker and had a few big wobbles transfering from the bathroom and back. She did rcv PRN ambien per her request before bed and slept well t/o most of the night.
[2024-06-17 08:00] VITALS: BP 141/77
[2024-06-17] MEDS ORDERED: Enoxaparin 30 MG/0.3 ML SYR SC SCH (09:00)
[2024-06-17] MEDS ORDERED: dexAMETHasone 4 MG TAB PO SCH (12:00)
[2024-06-17 15:25] VITALS: BP 134/73
--- NOTE | 2024-06-17 17:25 | NUR ---
SHIFT SUMMARY PT A&OX4, VSS, AMB W/ SBA, TOLERATING PO, VOIDING, AND PAIN MANAGED PER EMAR. PT FORGETFUL, IMPULSIVE, AND CONFUSED T/O SHIFT. NS CONT TO INFUSE PER EMAR. PT WORKED W/ PHYSICAL THERAPY AND OT, SEE THERAPY NOTES. DENTAL HYGIENIST ROUNDED ON PT AND RECOMMENDED SALT WATER RINSES TID. NO OTHER ACUTE CHANGES. CALL LIGHT WITHIN REACH AND BED ALARM ON.
[2024-06-17 20:12] VITALS: BP 164/75
[2024-06-18] MEDS ORDERED: Metoprolol Tartrate 25 MG Tab PO SCH
[2024-06-18 00:52] VITALS: BP 174/79
[2024-06-18 03:26] VITALS: BP 158/67
--- NOTE | 2024-06-18 06:14 | NUR ---
Shift Summary Pt had some confusion and impulsivness t/o the night. One episode of removing clothes and unscrewing her IV cap with some bleeding. After this episode I put a monitoring camera in her room which has been very effective at detering impulsive behavior and giving us an early warning. IV fluids were d/c per MD order and pt was started on Metoprolol, first dose given around 0050. Pt slept well t/o most of the night. AOx3, cooperative with care, easily re-directable. 1 assist to BSC instead of BR for fall safety.
[2024-06-18 08:08] VITALS: BP 160/99
[2024-06-18 11:24] LABS: BASOPHILS ABSOLUTE AUTO 0.02 K/mm3 (0.00-0.23); BASOPHILS PERCENT AUTO 0 % (0-2); EOSINOPHILS PERCENT AUTO 0 % (0-6); Hematocrit 30.2 % (33.0-51.0); IMMATURE GRAN PERCENT AUTO 1 % (0-1); LYMPHOCYTES ABSOLUTE AUTO 0.94 K/mm3 (0.84-5.20); LYMPHOCYTES PERCENT AUTO 10 % (21-46); MONOCYTES ABSOLUTE AUTO 0.69 K/mm3 (0.16-1.47); MONOCYTES PERCENT AUTO 8 % (4-13); Mean Corpuscular HGB 29.6 pg (26.0-34.0); Mean Corpuscular HGB Conc 33.1 g/dL (31.5-36.5); Mean Corpuscular Volume 89 fL (80-100); Mean Platelet Volume 9.9 fL (9.1-12.4); NEUTROPHILS ABSOLUTE AUTO 7.35 K/mm3 (1.96-9.15); NEUTROPHILS PERCENT AUTO 81 % (41-73); Platelet Count 344 K/mm3 (150-400); RDW Standard Deviation 45.4 fL (35.1-46.3); Red Blood Cell Count 3.38 M/mm3 (3.80-5.20)
[2024-06-18 11:41] LABS: Bun/Creatinine Ratio 21.2 (12.0-20.0); Calcium, Blood 9.1 mg/dL (8.5-10.1); Creatinine, Blood 1.56 mg/dL (0.40-1.00); Potassium, Blood 5.4 mmol/L (3.5-5.5)
[2024-06-18 15:25] VITALS: BP 160/70
--- NOTE | 2024-06-18 18:21 | NUR ---
SHIFT SUMMARY PT C/O PAIN THAT WAS MEDICATED PER THE EMAR. PT WAS FORGETFUL, CONFUSED, AND IMPULSIVE DESPITE REORIENTATION AND EDUCATION ON CALLING BEFORE FALLING. PT ATTEMPTED TO GET OUT OF BED SEVERAL TIMES T/O THE SHIFT. CAMERA IN PLACE ON PT AND BED ALARM ON. PT HYPERTENSIVE, BUT ASYMPTOMATIC. TO PUT ORDERS IN FOR HOME MEDS PER TELEPHONE CONVERSATION. PT MOVED TO ROOM 351 AND THIS NURSE GAVE REPORT TO MARSHA GORMAN. MARSHA TO ASSUME CARE OF PT.
--- NOTE | 2024-06-18 18:26 | NUR ---
TRANSFERRED NOTE: RECEIVED REPORTS FROM VITA ALSTON REGARDING PATIENT CONDITION. PATIENT ARRIVES TO ROOM 1815 VIA BED FROM RM 361. ASSUME CARE OF PATIENT. PATIENT SITTING UPRIGHT IN BED HAVING DINNER AT THIS TIME. PATIENT ON CONTINUES VIDEO MONITORING AND BED ALARM ON FOR SAFETY. CALL LIGHT IN REACH.
[2024-06-18] MEDS ORDERED: SUMAtriptan succinate 50 MG Tab PO PRN (18:30)
[2024-06-18] MEDS ORDERED: Fluticasone 0.05% Nasal Spray PRN (18:30)
[2024-06-18] MEDS ORDERED: TiZANidine HCl 4 MG Tab PO PRN (18:35)
[2024-06-18] MEDS ORDERED: Nitroglycerin 0.4 MG SUBL SL PRN (18:40)
[2024-06-18] MEDS ORDERED: Albuterol HFA200 ACT/6.7 GM INH INH PRN (19:05)
[2024-06-18] MEDS ORDERED: Acyclovir 400 MG Tab PO SCH (20:00)
[2024-06-18] MEDS ORDERED: Misc. Tablet PO SCH ×2 (20:00)
[2024-06-18] MEDS ORDERED: Vitamin B Cmplx/Vit C/Folic Ac 1 Tab PO SCH (20:00)
[2024-06-18] MEDS ORDERED: Finasteride 5 MG Tab PO SCH (20:00)
[2024-06-18] MEDS ORDERED: Flax Seed 1,000 MG CAP PO SCH (20:00)
[2024-06-18] MEDS ORDERED: Levothyroxine Sodium 0.137 MG Tab PO SCH (20:00)
[2024-06-18] MEDS ORDERED: Clopidogrel Bisulfate 75 MG Tab PO SCH (20:00)
[2024-06-18] MEDS ORDERED: Gabapentin 300 MG Cap PO SCH (20:00)
[2024-06-18] MEDS ORDERED: Calcium 500 MG/Vit D 200 Units Tab PO SCH (20:00)
[2024-06-18] MEDS ORDERED: Multivitamins 1 Tab PO SCH (20:00)
[2024-06-18] MEDS ORDERED: Cyanocobalamin 500 MCG Tab PO SCH (20:00)
[2024-06-18] MEDS ORDERED: Ezetimibe 10 MG Tab PO SCH (20:00)
[2024-06-18] MEDS ORDERED: Ascorbic Acid 500 MG Tab PO SCH (20:00)
[2024-06-18] MEDS ORDERED: Polyethylene Glycol 3350 17 gm PO SCH (20:00)
[2024-06-18] MEDS ORDERED: Pantoprazole Sodium 40 MG Tab PO SCH (20:00)
[2024-06-18] MEDS ORDERED: DULoxetine HCL 60 MG Capsule DR PO SCH (20:00)
[2024-06-18] MEDS ORDERED: QUEtiapine Fumarate 25 MG Tab PO SCH (21:00)
[2024-06-18 21:08] VITALS: BP 174/82
[2024-06-19 04:40] VITALS: BP 154/116
--- NOTE | 2024-06-19 04:41 | NUR ---
pt resting quietly through the night. No distress noted.
[2024-06-19 06:05] LABS: BASOPHILS ABSOLUTE AUTO 0.02 K/mm3 (0.00-0.23); BASOPHILS PERCENT AUTO 0 % (0-2); EOSINOPHILS PERCENT AUTO 0 % (0-6); Hematocrit 31.1 % (33.0-51.0); Hemoglobin 10.1 g/dL (11.5-16.0); IMMATURE GRAN ABSOLUTE AUTO 0.09 K/mm3 (0.00-0.10); IMMATURE GRAN PERCENT AUTO 1 % (0-1); LYMPHOCYTES ABSOLUTE AUTO 0.98 K/mm3 (0.84-5.20); LYMPHOCYTES PERCENT AUTO 13 % (21-46); MONOCYTES ABSOLUTE AUTO 0.74 K/mm3 (0.16-1.47); MONOCYTES PERCENT AUTO 10 % (4-13); Mean Corpuscular HGB 29.3 pg (26.0-34.0); Mean Corpuscular HGB Conc 32.5 g/dL (31.5-36.5); Mean Corpuscular Volume 90 fL (80-100); Mean Platelet Volume 10.1 fL (9.1-12.4); NEUTROPHILS ABSOLUTE AUTO 5.74 K/mm3 (1.96-9.15); NEUTROPHILS PERCENT AUTO 76 % (41-73); Platelet Count 349 K/mm3 (150-400); RDW Coefficient Variation 14.1 % (11.7-14.2); RDW Standard Deviation 46.2 fL (35.1-46.3); Red Blood Cell Count 3.45 M/mm3 (3.80-5.20); White Blood Cell Count 7.57 K/mm3 (4.00-11.30)
[2024-06-19 06:19] LABS: Bun/Creatinine Ratio 21.3 (12.0-20.0); Calcium, Blood 9.2 mg/dL (8.5-10.1); Creatinine, Blood 1.74 mg/dL (0.40-1.00); Potassium, Blood 5.3 mmol/L (3.5-5.5)
[2024-06-19 07:25] VITALS: BP 155/79
[2024-06-19] MEDS ORDERED: Gabapentin 300 MG Cap PO SCH (09:00)
[2024-06-19 15:36] VITALS: BP 137/80
== END 2024-06-19 17:06 ==
LOC: ER 10:16 → ERHOLD 10:17 → MEDS 10:17
PROVIDERS: Emergency Medicine; Student in an Organized Health Care Education/Training Program; ADMIT Internal Medicine
DX: N17.9 Acute kidney failure, unspecified (principal); R33.9 Retention of urine, unspecified; E87.5 Hyperkalemia; U07.1 COVID-19; I12.9 Hypertensive chronic kidney disease with stage 1 through stage 4 chronic kidney disease, or unspecified chronic kidney disease; E11.22 Type 2 diabetes mellitus with diabetic chronic kidney disease; N18.30 Chronic kidney disease, stage 3 unspecified; I25.10 Atherosclerotic heart disease of native coronary artery without angina pectoris; D64.9 Anemia, unspecified; G31.84 Mild cognitive impairment of uncertain or unknown etiology; M48.56XA Collapsed vertebra, not elsewhere classified, lumbar region, initial encounter for fracture; R91.8 Other nonspecific abnormal finding of lung field; E03.9 Hypothyroidism, unspecified; Z66 Do not resuscitate; Z88.8 Allergy status to other drugs, medicaments and biological substances; Z79.890 Hormone replacement therapy; Z79.899 Other long term (current) drug therapy
CPT/HCPCS: 0241U; 36415; 51798; 71046; 80048; 80053; 81001; 82947; 85025; 87086; 93005; 93010; 96361; 96372; 96374; 97116; 97129-GO-CO; 97130-GO-CO; 97162; 97165; 97530; 97535; 99284-25; A9270; G0378; J1650; J2405; J7030